=== PATIENT | female | born 1995 | race African-American/Black ===

== ENCOUNTER → 2016-05-08 | Outpatient (CLI) | payer BC ==
--- NOTE | 2016-05-08 16:52 | KCIC ---
PROCEDURE MRI study of the right ankle without contrast HISTORY Severe sprain of the right ankle. Recurrent right ankle pain. TECHNIQUE Noncontrast MRI sequences of the right ankle were performed in all 3 planes. COMPARISON None available. FINDINGS There is bone marrow edema of the head and neck and anterior body of the talus. No cortical fracture line is seen. Therefore, this may represent a contusion or stress reaction bone marrow edema. There is a bone contusion or osteochondral injury involving the posterior aspect of the medial dome of the talus. No unstable osteochondral fragment is seen here. No focal osteochondral abnormality of the tibial plafond is seen. There is bone marrow edema seen involving the distal anterior calcaneal process and the apposing medial posterior aspect of the cuboid bone. No fracture is seen here. This may represent a bone contusion or stress reaction bone marrow edema. Small mortise ankle joint effusion and calcaneocuboid joint effusion is seen. No osseous tarsal coalition is seen. The talocalcaneal and cervical ligaments are intact and no edema of the sinus tarsi is seen. The plantar aponeurosis is intact. No plantar spur of the calcaneus is evident. The Achilles tendon is intact. The flexor and peroneal and extensor tendons are intact. There is mild tenosynovitis of the posterior tibialis tendon and the flexor digitorum longus tendons and the flexor hallucis longus tendon. The distal interosseous ligament and the anterior and posterior tibiofibular ligaments and anterior and posterior talofibular ligaments and the deltoid ligament and calcaneofibular ligament and spring ligament are intact. The flexor and extensor and peroneal retinacular ligaments are intact. IMPRESSION Bone contusions or stress reaction bone marrow edema involving the head and neck and anterior body of the talus and the distal anterior calcaneal process and the apposing medial posterior aspect of the cuboid bone. Bone contusion or osteochondral injury of the posterior medial aspect of the dome of the talus. No unstable osteochondral fragment is seen here. No cortical fracture line is seen. No ligament or tendon tear is seen. Electronically signed by: Benito Velazquez MD (May 08, 2016 16:51:33)
== END | disposition home or self-care (01) ==
LOC: KCIC MRI 15:12
PROVIDERS: ATTEND Orthopaedic Surgery
DX: S93.401A Sprain of unspecified ligament of right ankle, initial encounter (principal)
CPT/HCPCS: 73721

== ENCOUNTER → 2016-07-08 | Outpatient (CLI) | payer BC ==
--- NOTE | 2016-07-08 10:13 | KCIC ---
PROCEDURE MR of the right knee HISTORY Right knee pain. Pain anterior. Instability. Injury March 2016. TECHNIQUE Standard noncontrast images are obtained. COMPARISON October 01, 2013. FINDINGS Medial meniscus intact. No evidence of a lateral meniscal tear. The anterior and posterior cruciate ligaments are intact. Medial collateral ligament is intact. Iliotibial band unremarkable. Fibular collateral ligament, biceps femoris tendon and popliteus tendon are intact. Extensor mechanism is intact. No significant joint effusion. No evidence of an osteochondral loose body. Articular cartilage is intact. No evidence of a bone lesion or an acute fracture. No significant Vazquez cyst. Minimal edema signal within the upper lateral infrapatellar fat, of doubtful clinical significance. Similar but slightly milder than what was seen on prior study. No gross patellar subluxation. Tibial tubercle-trochlear groove distance measures 19 millimeters. IMPRESSION No evidence of internal derangement or acute abnormality. Electronically signed by: Moncho Watts MD (Jul 08, 2016 10:11:54)
== END | disposition home or self-care (01) ==
LOC: KCIC MRI 07:54
PROVIDERS: ATTEND Orthopaedic Surgery
DX: M25.561 Pain in right knee (principal)
CPT/HCPCS: 73721